=== PATIENT | female | born 1990 | race Caucasian/White ===

== ENCOUNTER 2016-12-13 18:21 | Emergency (ER) | payer SELFPAY ==
[2016-12-13 18:55] LABS: BASOPHILS % 0.4 (0.0-1.5); EOSINOPHILS % 0.5 % (0.0-6.8); MEAN CORPUSCULAR HEMOGLOBIN 33.8 pg (28.0-34.0); MEAN CORPUSCULAR VOLUME 99.2 fl (80.0-100.0); MONOCYTES % 3.9 % (0.0-11.0); NEUTROPHILS # 10.8 # k/uL (1.4-7.7)
[2016-12-13 19:06] LABS: eGFR (African) > 60; eGFR (Non-African) > 60
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
[2016-12-13] MEDS: 0.9 % SODIUM CHLORIDE 1,000 ML IV ONE (19:51)
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
[2016-12-13 21:06] VITALS: BP 130/81
== END 2016-12-13 20:59 | disposition home or self-care (01) ==
LOC: ED 18:21
DX: F10.120 Alcohol abuse with intoxication, uncomplicated (principal); V89.2XXA Person injured in unspecified motor-vehicle accident, traffic, initial encounter; X58.XXXA Exposure to other specified factors, initial encounter; Y93.9 Activity, unspecified; Y99.9 Unspecified external cause status
CPT/HCPCS: 70450; 72125; 73610; 73630; 80053; 80320; 84703; 85025; J7030; 96360; 99283; 99284; G0480; S1016